=== PATIENT | male | born 1985 | race Caucasian/White ===

== ENCOUNTER 2022-01-31 09:48 | Emergency (ER) | payer OTHER ==
[2022-01-31 10:03] VITALS: BP 148/88
[2022-01-31] MEDS ORDERED: predniSONE 20 MG TABLET PO STA (10:19)
--- NOTE | 2022-01-31 10:19 | ED Physician Documentation ---
PD HPI DYSPNEA - Stated complaint Stated Complaint: SOA - Chief complaint Chief Complaint: Resp - Additional information Additional information: Patient is a 36-year-old male requesting refill of his Ventolin inhaler. Endorses for history of asthma with wheezing and shortness of breath at home for the last several days. Worse in the evenings. Reports known trigger, seasonal allergies and reports has been working outside a great deal which she believes is contributing to his symptoms. Denies any fever, chills, chest pain, shortness of breath, abdominal pain, nausea, vomiting, diarrhea, constipation. Review of Systems Ten Systems: 10 systems reviewed and negative Constitutional: denies: Fever Eyes: denies: Loss of vision Ears: denies: Loss of hearing Nose: denies: Rhinorrhea / runny nose Throat: denies: Dental pain / toothache Cardiac: denies: Chest pain / pressure Respiratory: reports: Dyspnea, Wheezing GI: denies: Abdominal Pain : denies: Dysuria PD PAST MEDICAL HISTORY - Past Medical History Respiratory: Asthma - Present Medications Home Medications: Ambulatory Orders Medication Instructions Recorded Confirmed Albuterol Sulf [Ventolin Hfa 1 - 2 puffs INH Q4HR PRN #1 gm 01/31/22 Inhaler] Cetirizine HCl [Allergy] 10 mg PO DAILY #30 tablet 01/31/22 Fluticasone [Flonase] 120 sprays SALOME BID #1 ml 01/31/22 predniSONE [Deltasone] 40 mg PO DAILY #4 tablet 01/31/22 - Allergies Allergies/Adverse Reactions: Allergies Allergy/AdvReac Type Severity Reaction Status Date / Time No Known Drug Allergies Allergy Verified 01/31/22 10:03 PD ED PE NORMAL - Vitals Vital signs reviewed: Yes - General General: Alert and oriented X 3, No acute distress - HEENT HEENT: Atraumatic - Neck Neck: Supple, no meningeal sign - Cardiac Cardiac: RRR, No gallop, Strong equal pulses - Respiratory Respiratory: No respiratory distress, Clear bilaterally - Male Male : Deferred - Rectal Rectal: Deferred Results - Vitals Vitals: Vital Signs - 24 hr 01/31/22 09:59 Temperature 36.9 C Heart Rate 92 Respiratory 12 Rate Blood Pressure 148/88 H O2 Saturation 98 Oxygen O2 Source Room air PD MEDICAL DECISION MAKING - ED course Complexity details: d/w patient ED course: Patient is 36-year-old male with past medical significant for asthma presenting to the emergency department requesting refill of his Ventolin inhaler. Is here for work and regularly lives in [place]. Afebrile, hemodynamic stable with clear aeration and no respiratory distress on exam. Will discharge on short course oral prednisone with refill Ventolin inhaler as well as a course of Zyrtec and Flonase. Encourage careful follow-up with primary care and or return to the emergency department as needed. Departure - Departure Disposition: Home, Self Care Clinical Impression: Asthma Instructions: Asthma Dc Prescriptions: Albuterol Sulf [Ventolin Hfa Inhaler] 1 - 2 puffs INH Q4HR PRN #1 gm PRN Reason: Shortness Of Air/Wheezing Cetirizine HCl [Allergy] 10 mg PO DAILY #30 tablet predniSONE [Deltasone] 40 mg PO DAILY #4 tablet Fluticasone [Flonase] 120 sprays SALOME BID #1 ml Comments: Thank you for allowing us to care for you today at [facility]. Be discharging with a prescription for a Ventolin inhaler as well as a short course of oral prednisone, Zyrtec and Flonase to help with your symptoms. I recommend regular use of your inhaler at home, specifically four puffs every four hours at home for the next 3 to 4 days as needed. If it anytime you develop any new or worsening symptoms please not hesitate to return to the emergency department. Discharge Date/Time: 01/31/22 10:33
== END 2022-01-31 10:33 | disposition home or self-care (01) ==
LOC: ED 09:48
DX: Z76.0 Encounter for issue of repeat prescription (principal); J45.909 Unspecified asthma, uncomplicated
CPT/HCPCS: 99284; J7512